=== PATIENT | male | born 1985 | race Caucasian/White ===

== ENCOUNTER 2017-10-08 20:05 | Emergency (ER) | payer SELFPAY ==
[~2017-10-08] VITALS: Ht 167.6 cm; Wt 76.0 kg
[2017-10-08 21:15] VITALS: BP 130/80
== END 2017-10-08 21:15 | disposition home or self-care (01) ==
LOC: ED 20:05
DX: R07.9 Chest pain, unspecified (principal); R03.0 Elevated blood-pressure reading, without diagnosis of hypertension
CPT/HCPCS: J1885; Q0092